=== PATIENT | male | born 1995 | race American Indian/Alaskan Native ===

== ENCOUNTER 2019-08-13 20:20 | Emergency (ER) | payer OTHER ==
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
== END 2019-08-13 21:50 | disposition left against medical advice (07) ==
LOC: ED 20:20
DX: M54.89 Other dorsalgia (principal); M79.641 Pain in right hand; V89.2XXA Person injured in unspecified motor-vehicle accident, traffic, initial encounter; Y93.89 Activity, other specified; Y92.410 Unspecified street and highway as the place of occurrence of the external cause; Y99.8 Other external cause status
CPT/HCPCS: 99282

== ENCOUNTER 2020-09-03 11:06 | Emergency (ER) | payer SELFPAY ==
[2020-09-03 11:16] VITALS: BP 144/94
--- NOTE | 2020-09-03 11:23 | Emergency Department Report ---
Stated Complaint: MOUTH PAIN/TOOTHACHE Time Seen by Provider: 09/03/20 11:15 - HPI History of Present Illness: 24-year-old -[place] male presents to the emergency room for 1 week history of roof pain and wisdom teeth pain. Patient states he has not taken any pain medication but has been using [id number] analgesics gel that he has been placing on his gums. Patient states he is probably not seen a dentist in probably 5 years. Patient does smoke cigarettes. Patient denies any history of herpes. - Exam Vital Signs: Vital Signs 09/03/20 11:13 Temperature 98 F Pulse Rate 89 Respiratory 20 Rate Blood Pressure 144/94 Physical Exam: Patient is alert and oriented nontoxic in appearance no acute distress. Oral mucosa is moist. Roof of the mouth mild swelling and erythematous. There is no lesions appreciated there is no abscess appreciated nontender to palpate. MSE screening note: Focused history and physical exam performed. Due to findings the following was ordered: 24-year-old -[place] male presents to the emergency room for 1 week history of roof pain and wisdom teeth pain. Patient states he has not taken any pain medication but has been using [id number] analgesics gel that he has been placing on his gums. Patient states he is probably not seen a dentist in probably 5 years. Patient does smoke cigarettes. Patient denies any history of herpes. Recommend to follow-up with a dentist. Discussed about taking Tylenol or ibuprofen or naproxen. Discussed about avoiding smoking cigarettes. ED Disposition for MSE Disposition: Z-07 MED SCREENING EXAM-LEFT Is pt being admited?: No Does the pt Need Aspirin: No Condition: Stable Additional Instructions: Recommend to follow-up with a dentist. Take Tylenol ibuprofen or Aleve for pain. Stop smoking cigarettes. Referrals: [facility] [Outside] - 3-5 Days [facility] [Outside] - 3-5 Days [facility] [Provider Group] - 3-5 Days
== END 2020-09-03 11:57 | disposition left against medical advice (07) ==
LOC: ED 11:06
DX: K08.89 Other specified disorders of teeth and supporting structures (principal); Z53.21 Procedure and treatment not carried out due to patient leaving prior to being seen by health care provider

== ENCOUNTER 2021-12-13 23:40 | Emergency (ER) | payer SELFPAY ==
[2021-12-14 03:17] VITALS: BP 161/87
== END 2021-12-14 05:00 | disposition left against medical advice (07) ==
LOC: ED 23:40
DX: Z04.1 Encounter for examination and observation following transport accident (principal); Z53.21 Procedure and treatment not carried out due to patient leaving prior to being seen by health care provider; V89.2XXA Person injured in unspecified motor-vehicle accident, traffic, initial encounter; Y93.89 Activity, other specified; Y92.89 Other specified places as the place of occurrence of the external cause; Y99.8 Other external cause status